=== PATIENT | male | born 1980 | race Caucasian/White ===

== ENCOUNTER 2016-12-17 13:25 | Observation (INO) | payer OTHER ==
[~2016-12-17] VITALS: Ht 170.2 cm; Wt 71.2 kg
[2016-12-17 14:41] LABS: RED BLOOD COUNT 4.81 M/UL (4.20-5.50); WHITE BLOOD COUNT 8.7 K/UL (4.5-11.0)
[2016-12-17 14:43] LABS: BUN/CREATININE RATIO 15 (0-10)
[2016-12-19] MEDS ORDERED: PERCOCET 10-321 EACH PO (10:41)
[2016-12-19] MEDS ORDERED: DOXYCYCLINE HY100 MG PO (10:46)
== END 2016-12-19 12:10 | disposition home or self-care (01) ==
LOC: ER1 13:25 → M/S 15:15 → ZEROF 15:15 → M/S 19:12
PROVIDERS: Emergency Medicine; ADMIT Orthopaedic Surgery
PROC: 0LQ70ZZ Repair Right Hand Tendon, Open Approach (ICD-10-PCS; 2016-12-17)
PROC: 0PST04Z Reposition Right Finger Phalanx with Internal Fixation Device, Open Approach (ICD-10-PCS; principal; 2016-12-17 15:15)
PROC: 0HQQXZZ Repair Finger Nail, External Approach (ICD-10-PCS; 2016-12-17 15:15)
DX: S62.614B Displaced fracture of proximal phalanx of right ring finger, initial encounter for open fracture (principal); S62.606B Fracture of unspecified phalanx of right little finger, initial encounter for open fracture; I10 Essential (primary) hypertension; F17.210 Nicotine dependence, cigarettes, uncomplicated; Z86.19 Personal history of other infectious and parasitic diseases; W31.2XXA Contact with powered woodworking and forming machines, initial encounter; Y93.89 Activity, other specified
CPT/HCPCS: 36415; 73130; 73140; 76000; 80048; 85025; 90715; 96374; 96375; 99283; G0378; J0690; J2250; J2270; J2405; J3010; J7120